=== PATIENT | male | born 1990 | race Two or more races ===

== ENCOUNTER 2023-02-19 08:45 | Emergency (ER) | payer MEDICAID ==
[~2023-02-19] VITALS: Ht 185.4 cm; Wt 111.4 kg
[2023-02-19] MEDS ORDERED: DexAMETHasone SOD PHOS 10MG/1ML VIAL INJ IM ONE (09:30)
[2023-02-19] MEDS ORDERED: diphenhdrAMINE HCL 50 MG/1 ML VL IM ONE (09:30)
[2023-02-19 09:32] VITALS: BP 141/86; PULSE 90; RESP 17; TEMP 98; O2SAT 100
[2023-02-19] MEDS ORDERED: DIPH25TA54 PO (09:34)
[2023-02-19] MEDS ORDERED: PRED20TA2 PO (09:34)
== END 2023-02-19 09:35 | disposition home or self-care (01) ==
LOC: ER 08:45
DX: T78.40XA Allergy, unspecified, initial encounter (principal); F12.10 Cannabis abuse, uncomplicated; F15.10 Other stimulant abuse, uncomplicated; X58.XXXA Exposure to other specified factors, initial encounter
CPT/HCPCS: 96372; 99284; J1100; J1200